=== PATIENT | male | born 1995 | race Caucasian/White ===

== ENCOUNTER 2016-11-21 08:19 | Emergency (ER) | payer OTHER ==
[2016-11-21 08:25] VITALS: BP 146/89; PULSE 124; TEMP 99.3; BMI 36.6
--- NOTE | 2016-11-21 08:37 | PDOC ---
History of Present Illness - General Chief Complaint: Nausea Stated Complaint: FEVER, NAUSEA Time Seen by Provider: 11/21/16 08:32 - History of Present Illness Initial Comments: 11/21/16 08:33 CHIEF COMPLAINT: nausea HISTORY OF PRESENT ILLNESS: 21 yo M with no PMH presents to ED with fever and nausea since yesterday. Patient states his sister is sick with fever and vomiting, and today he just "doesn't feel good." He reports that he "felt warm yesterday" and that he has been "feeling like I'm going to throw up" but denies any vomiting or diarrhea. He denies any abdominal pain, URI symptoms, or any change in urinary or bowel habits. No recent travel or sick contacts. PAST MEDICAL HISTORY: Denies past medical history FAMILY HISTORY: Denies SOCIAL HISTORY:Denies tobacco, alcohol, illicit drug use. SURGICAL HISTORY: Denies ALLERGIES: No known drug allergies REVIEW OF SYSTEMS General/Constitutional: Denies fever or chills. Denies weakness, weight change. HEENT: Denies change in vision. Denies ear pain or discharge. Denies sore throat. Cardiovascular: Denies chest pain or shortness of breath. Respiratory: Denies cough, wheezing, or hemoptysis. Gastrointestinal: Nausea x 1 day. Denies vomiting, diarrhea or constipation. Genitourinary: Denies dysuria, frequency, or change in urination. Musculoskeletal: Denies joint or muscle swelling or pain. Denies neck or back pain. Skin and breasts: Denies rash or easy bruising. Neurologic: Denies headache, vertigo, loss of consciousness, or loss of sensation. PHYSICAL EXAM General Appearance: Well-appearing, appropriately dressed. No apparent distress. HEENT: EOMI, PERRLA, normal ENT inspection, normal voice, TMs normal, pharynx normal. No conjunctival pallor. No photophobia, scleral icterus. Respiratory/Chest: Lungs CTAB. Cardiovascular: RRR. S1, S2. Gastrointestinal/Abdominal: Normal bowel sounds. Abdomen soft, non-distended. No tenderness or rebound tenderness. No organomegaly, pulsatile mass, guarding , hernia, hepatomegaly, splenomegaly. Integumentary: Appropriate color, dry, warm. No cyanosis, erythema, jaundice or rash Neurologic: lead cargo mover II-XII intact. Fully oriented, alert. Appropriate mood/affect. Motor strength 5/5. No appreciable EOM palsy, facial droop or sensory deficit. 11/21/16 08:47 Past History - Past Medical History Allergies/Adverse Reactions: Allergies Allergy/AdvReac Type Severity Reaction Status Date / Time No Known Allergies Allergy Verified 11/21/16 08:25 Home Medications: Ambulatory Orders Ibuprofen 600 mg PO TID #21 tablet 11/21/16 Ondansetron [Zofran *Odt*] 8 mg SL BID PRN #8 od.tablet 11/21/16 Anemia: No Asthma: No Cancer: No Cardiac Disorders: No CVA: No COPD: No DVT: No Dementia: No Diabetes: No Dialysis: No GI Disorders: No Disorders: No HTN: No Hypercholesterolemia: No HIV: No Kidney Stones: No Liver Disease: No Psychiatric Problems: No Seizures: No Thyroid Disease: No Lung CA: No - Surgical History Abdominal Surgery: No Appendectomy: No Cardiac Surgery: No Cholecystectomy: No Gastric Stapling: No GI Surgery: No Lung Surgery: No Neurologic Surgery: No - Immunization History TDAP Vaccination: Yes Immunization Up to Date: Yes - Psycho/Social/Smoking Cessation Hx Anxiety: No Suicidal Ideation: No Smoking History: Never smoked Have you smoked in the past 12 months: No Number of Cigarettes Smoked Daily: 0 Hx Alcohol Use: No Drug/Substance Use Hx: No Substance Use Type: None *Physical Exam - Vital Signs Last Vital Signs Temp Pulse Resp BP Pulse Ox 99.3 F 124 H 20 146/89 97 11/21/16 08:21 11/21/16 08:21 11/21/16 08:21 11/21/16 08:21 11/21/16 08:21 Medical Decision Making - Medical Decision Making 11/21/16 09:13 21 yo M with no PMH presents to ED with nausea and subjective fever x 1 day. Vital signs notable for HR 120. -Zofran 8 mg -600 mg ibuprofen *DC/Admit/Observation/Transfer Diagnosis at time of Disposition: Nausea - Discharge Dispostion Disposition: HOME Condition at time of disposition: Stable Admit: No - Prescriptions Prescriptions: Ibuprofen 600 mg PO TID #21 tablet Ondansetron [Zofran *Odt*] 8 mg SL BID PRN #8 od.tablet PRN Reason: Nausea And/Or Vomiting - Patient Instructions Printed Discharge Instructions: DI for Nausea -- Adult Additional Instructions: Please take medication as prescribed; only take Zofran for persistent vomiting. Follow up with your primary care doctor by the end of the week if symptoms persist. If you experience fever, diarrhea, abdominal pain, rectal bleeding, or any new or worsening symptoms, please return to the ER.
[2016-11-21] MEDS ORDERED: ONDANSETRON *ODT* 4 MG TABLET SL ONE (08:46)
[2016-11-21] MEDS ORDERED: IBUPROFEN 600 MG TABLET (FP) PO ONE ×2 (08:50→08:52)
[2016-11-21] MEDS ORDERED: ONDANSETRON *ODT* 4 MG TABLET ONE (08:52)
== END 2016-11-21 09:33 | disposition home or self-care (01) ==
LOC: JERFT 08:19 → JER 08:19 → JERFT 09:33
DX: R50.9 Fever, unspecified (principal); R11.2 Nausea with vomiting, unspecified
CPT/HCPCS: 99281-25